=== PATIENT | female | born 1995 | race Caucasian/White ===

== ENCOUNTER 2022-10-04 08:28 | Outpatient (AMB) | payer OTHER, SELFPAY ==
--- NOTE | 2022-10-04 08:30 | MHC.OFFVIS ---
Intake Vital Signs 10/04/22 08:31 Height 5 ft 2 in Weight 141 lb BMI 25.8 BP 104/70 Blood Pressure Location Rt brachial Position Sitting Pulse 80 Pulse Source Pulse Oximeter Pulse Oximetry (%) 99 Oxygen Delivery Method Room Air Intake Visit Reasons: [employer] Migraines - Confirmed Intake Note: Patient presents for migraines. Patient states I get migraines daily I've had migraines for as long as I can remember,they have been more frequent and debilitating. Allergies No Known Allergies Allergy (Verified 10/04/22 08:35) Medication List - Last Reconciled 10/04/22 by SUNITHA Us acetaminophen-caffeine 500-65 mg (Excedrin Tension Headache) 1 tab PO Q12H PRN etonogestrel (Nexplanon) subdermal HPI HPI Comments History of Present Illness Details Left-handed 26-yr-old female presents for new pt evaluation of headache disorder. She reports that she started having headaches at age 17. The headaches have been gradually worsening over the past 4-5 years. Headache questionnaire: Preceding causes? None Previous work-up? No MRIs. Had an occipital region x-ray- for asymmetry in occipital region- was told WNL. Typical headache characteristics: Prodrome symptoms? None Aura? None Location, quality, characteristics? May start in the back of the head or may start in the frontal region. Throbbing pain, stabbing if severe. Pain intensity? always become severe Associated symptoms? Photophobia, blurry vision, phonophobia, allodynia, nausea, rarely vomiting, brain fog, dizziness. Focal weakness, Parethesias, Autonomic s/s? red eyes Postdrome? residual migraine hangover sensation Triggers? alcohol, stress, not sleeping enough, not eating Any positional, valsalva, exertional, sexual activity triggers? None. However laying down can aggravate the occipital head pressure and allodynia. Cervical flexion, such as looking down while sweeping, will cause occipital pressure. Menstrual triggers? none- on Nexplanon. Time of day? Usually wakes up in the morning and then becomes severe around 1-2pm. Duration? 1-4 days Frequency? 18-19 headache days in the last month How does headache impact your life? Has to miss work as she cannot look at the computer during a migraine attack. Works a s director of customer service for [employer] Current acute medication use/interventions: Excedrin- daily Previous acute medication use: Sumatriptan 50mg- caused nausea. Current preventative medication use: None Previous preventative medication use: None Non-pharmacological interventions: Ice Other history of headache disorder? None History of musculoskeletal disorders or injury? No injuries. Scoliosis- thinks it was treated. 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 History of concussion/head injury? None History of mood disorder? Depression- well-controlled. History of sleep disorder? Cannot sleep well when she has a migraine attack. Usually mouth breathes, has unilateral nasal congestion, snoring, tiredness/fatigue. History of respiratory disease? None History of CV disease? None History of coagulopathy? In elementary school- had unilateral LE blood clots/swelling- pt does not known exact etiology. History of endocrine or metabolic disease? None History of seizure? None History of GI disorder? Can be prone to constipation Other? Memroy is overall not as good. Family planning? None Family history of migraine or other headache disorder? None PFSH Medical History (Updated 10/04/22 @ 21:01 by SUNITHA Us) Depression Family History Mother Cervical cancer Social History (Updated 10/04/22 @ 08:36 by QUEENIE Beck) Alcohol intake: current Patient Tobacco Use Status: Never used Tobacco Review of Systems Const Details: See scanned ROS form Physical Exam Vital Signs: Last Vital Signs Pulse 80 10/04/22 08:31 BP 104/70 10/04/22 08:31 Pulse Ox 99 10/04/22 08:31 Oxygen Delivery Method Room Air 10/04/22 08:31 BMI result Body Mass Index 25.8 Const Orientation/consciousness: patient oriented x3 HEENT Other: No palpable scalp tenderness. Head: Yes normocephalic Resp Effort & Inspection: normal respiratory effort and able to speak in complete sentences Skin Other: lumbrosacral pink birthmark Neuro Other: Photophobic General: patient oriented x3 Cranial nerves: Yes CN's II-XII intact bilaterally Cognition (Neuro): normal cognition Gait exam (Neuro): Normal gait present Motor exam (neuro): 5/5 motor strength present throughout Deep tendon reflexes (DTR's): Right triceps reflex intensity grade: 2+, Left triceps reflex intensity grade: 2+, Rt Biceps (C5, C6): 2+, Left biceps reflex intensity grade: 2+, Right brachioradialis reflex intensity grade: 2+, Left brachioradialis reflex intensity grade: 2+, Right patellar reflex intensity grade: 2+ and Left patellar reflex intensity grade: 2+ Coordination: [id number] test normal, tandem gait normal and Romberg test negative Pupils: Normal pupillary reactivity/response: bilateral Psych Appearance: grossly normal Mental Status: mental status grossly normal Speech and movement: Normal speech and movement present Affect: normal affect Attitude: cooperative Thought process: Normal thought process present Assessment & Plan Assessment & Plan (1) Cervicalgia: Code(s): M54.2 - Cervicalgia (2) Occipital headache: Code(s): R51.9 - Headache, unspecified (3) Chronic migraine without aura: Code(s): G43.709 - Chronic migraine without aura, not intractable, without status migrainosus (4) Snoring: Code(s): R06.83 - Snoring (5) Excessive daytime sleepiness: Code(s): G47.19 - Other hypersomnia (6) Sleep difficulties: Code(s): G47.9 - Sleep disorder, unspecified (7) History of scoliosis: Code(s): Z87.39 - Personal history of other diseases of the musculoskeletal system and connective tissue (8) Infantile hemangioma: Comment: lumbrosacral Code(s): D18.00 - Hemangioma unspecified site Plan Pt advised to undergo HST to assess for sleep apnea Pt advised to undergo c-spine XR w/ flexion/extension. Pt advised to undergo Brain MRI w/wo- to assess for secondary etiologies of occipital headache triggered by cervical flexion and laying down, such as AVM, intracranial hypertension. Trial PT. For overall headache management: Discussed importance of good self-care, including but not limited to maintaining a healthy diet, adequate fluid intake, adequate sleep, and engaging in regular physical activity. For headache triggers: Track headaches, especially after any treatment regimen changes. Migraine [employer] is one of many headache tracking apps. Light sensitivity tips: Patient may try blue light filtering glasses, green glasses, green light therapy.. For acute headache treatment: Discussed importance of taking acute medications at the first sign of headache, however stressed importance of avoiding acute medication overuse (especially with combined headache medications). Goal is to reduce daily Excedrin use. Trial Rizatriptan 10mg tab, 1/2 - 1 tab (5-10mg) at onset of headache, may repeat in 2 hours. Max of 2 tabs (200mg) per 24 hours. May adjunct with OTC Tylenol 650mg q 4 hours, Ibuprofen (liquigel) 600mg q 6 hours, or Naproxen (liquigel) 440mg q 12 hrs prn. Reviewed potential adverse effects of triptans, including but not limited to nausea, fatigue, chest tightness/tingling (usually passes within a few minutes), medication overuse headaches. Previous acute migraine medication trials: Sumatriptan 50mg- caused nausea. Acute migraine medication contraindications: None at this time For headache prevention medication: Discussed that preventative medications should be taken routinely as prescribed for best effect, it may take several weeks for full effect to take effect. Stagger starting: Riboflavin 400mg qam Magnesium 400mg qhs Amitriptyline 10mg qhs. Reviewed potential adverse effects of TCAs, including but not limited to fatigue, cardiac arrhythmias, mood changes. Previous migraine prevention medication trials: None Migraine prevention medication contraindications: None Information also given on non-pharmacological interventions, such as Cefaly or Nerivio neuromodulation devices. Pt to follow-up in 3 months or sooner prn. Orders: Orders RT home sleep study Today G47.19 - Other hypersomnia, G47.9 - Sleep disorder, unspecified, R06.83 - Snoring MR head/brain wo/w con Today R51.9 - Headache, unspecified XR cervical spine w flex/ext Today M54.2 - Cervicalgia, R51.9 - Headache, unspecified XR cervical spine 4V Today M54.2 - Cervicalgia, R51.9 - Headache, unspecified PT Evaluation and Treatment Today G43.709 - Chronic migraine without aura, not intractable, without status migrainosus, M54.2 - Cervicalgia, R51.9 - Headache, unspecified Medications: New rizatriptan max 2 tabs per day or 4 tabs per week 5 - 10 mg (0.5 - 1 x 10 mg) PO Q2H 21 days PRN 12 tabs 3RF migraine headache riboflavin (vitamin B2) in am 400 mg (4 x 100 mg) PO DAILY 30 days 120 tabs 6RF magnesium oxide may hold for loose stools 400 mg PO BEDTIME 30 days 30 tabs 6RF amitriptyline 10 mg PO BEDTIME 30 days 30 tabs 3RF Coding Level of Care Code New Pt Level 4 (95701) Diagnoses Cervicalgia M54.2 Occipital headache R51.9 Chronic migraine without aura G43.709 Snoring R06.83 Excessive daytime sleepiness G47.19 Sleep difficulties G47.9 History of scoliosis Z87.39 Infantile hemangioma D18.00
[2022-10-04 08:31] VITALS: BP 104/70; PULSE 80; O2SAT 99; BMI 25.8
== END 2022-10-04 09:40 | disposition home or self-care (01) ==
PROVIDERS: Visit Provider Nurse Practitioner Family
DX: M54.2 Cervicalgia (principal); R51.9 Headache, unspecified; G43.709 Chronic migraine without aura, not intractable, without status migrainosus; R06.83 Snoring; G47.19 Other hypersomnia; G47.9 Sleep disorder, unspecified; Z87.39 Personal history of other diseases of the musculoskeletal system and connective tissue; D18.00 Hemangioma unspecified site
CPT/HCPCS: 99204

== ENCOUNTER → 2022-10-04 08:28 | Outpatient (BNVA) | payer OTHER, SELFPAY | PROVIDERS: Visit Provider Nurse Practitioner Family ==

== ENCOUNTER → 2022-11-10 14:07 | Outpatient (REF) | payer OTHER, SELFPAY | LOC: HO.SL 14:07 | PROVIDERS: Visit Provider Nurse Practitioner Family | DX: G47.9 Sleep disorder, unspecified (principal); G47.19 Other hypersomnia; R06.83 Snoring | CPT/HCPCS: 95806 ==

== ENCOUNTER → 2022-11-10 14:15 | Outpatient (BNV) | payer OTHER, SELFPAY | PROVIDERS: Visit Provider Psychiatry & Neurology Neurology | DX: R06.83 Snoring (principal) | CPT/HCPCS: 95806 ==

== ENCOUNTER 2022-11-22 07:16 | Outpatient (REF) | payer OTHER, SELFPAY ==
--- NOTE | ~2022-11-22 | MR_ITS ---
EXAMINATION: MR BRAIN WITHOUT AND WITH CONTRAST CLINICAL INFORMATION: Headache. COMPARISON: None. TECHNIQUE: Multiplanar, multisequence imaging of the brain was performed before and after the intravenous administration of 6. mL of Gadavist. FINDINGS: No diffusion abnormalities are identified to suggest an acute infarct. The ventricles are normal in size. No mass effect or midline shift is seen. No brain parenchymal signal abnormality is noted. No extra-axial fluid collections are seen. The brainstem and cerebellum are normal. There is no abnormal parenchymal or leptomeningeal enhancement. The gradient refocused acquisition is normal. The craniovertebral junction, marrow signal, and midline structures are normal. The major intracranial flow voids at the level of the [place] are preserved. The dural venous sinus flow voids are maintained. The mastoid air cells are well aerated. There is mild mucosal thickening in the paranasal sinuses. MR/MR head/brain wo/w con IMPRESSION: Normal MRI of the brain. No acute process.
[2022-11-22] MEDS: gadobutroL 7.5 ML VIAL IVPUSH (08:14)
== END 2022-11-22 07:17 | disposition home or self-care (01) ==
LOC: HO.MRI 07:16
PROVIDERS: Visit Provider Nurse Practitioner Family
DX: R51.9 Headache, unspecified (principal)
CPT/HCPCS: 70553; A9585